=== PATIENT | female | born 1970 | race Caucasian/White ===

== ENCOUNTER 2023-05-13 12:41 | Inpatient (IN) | payer OTHER ==
[2023-05-13 14:14] LABS: HEMATOCRIT 35.6 % (32.4-45.2); MCH 31.5 pg (25.7-33.7); MCHC 33.6 g/dl (32.0-36.0); MEAN PLT VOLUME 7.4 fl (7.5-11.1); PLATELET COUNT 273.4 10^3/uL (134-434); RBC 3.79 10^6/uL (3.60-5.2); RDW 14.6 % (11.6-15.6); WHITE BLOOD COUNT 8.2 10^3/uL (4.0-10.8)
[2023-05-13 14:17] LABS: INR 1.1 (0.83-1.09); PROTHROMBIN TIME (PATIENT) 12.7 SEC (9.7-13.0)
[2023-05-13 14:19] LABS: PLATELET ESTIMATE ADEQUATE
[2023-05-13 14:23] LABS: BILIRUBIN,TOTAL 0.4 mg/dl (0.2-1); CALCIUM 9.1 mg/dl (8.5-10.1); CREATININE 0.6 mg/dl (0.6-1.3); SGOT/AST 17.8 U/L (15-37); SGPT/ALT 21.6 U/L (7-52)
[2023-05-13 18:01] VITALS: BMI 33.3
[2023-05-14] MEDS ORDERED: ACETAMINOPHEN 1000 MG/100 ML BAG IVPB ONE ×2 (10:00→13:59)
[2023-05-14] MEDS ORDERED: BUPIVACAINE HCL/PF 0.5% (5MG/ML) 10 ML VIAL ONE ×3 (12:23→12:37)
[2023-05-14] MEDS ORDERED: BUPIVACAINE LIPOSOME/PF (EXPAREL) 266 MG/20 ML VIAL ONE (12:23)
[2023-05-14] MEDS ORDERED: DEXMEDETOMIDINE HCL 200 MCG/2 ML IVPB ONE (12:23)
[2023-05-14] MEDS ORDERED: MIDAZOLAM HCL 2 MG/2 ML SINGLE DOSE VIAL ONE (12:23)
[2023-05-14] MEDS ORDERED: FENTANYL CITRATE/PF 50 MCG/ML VIAL ONE (12:24)
[2023-05-14] MEDS ORDERED: BUPIVACAINE HCL/PF 2.5 MG/ML - 30 ML VIAL IJ ONE (12:36)
[2023-05-14] MEDS ORDERED: PROPOFOL 20 ML ONE ×2 (13:12→14:47)
[2023-05-14] MEDS ORDERED: ONDANSETRON 4 MG/2 ML VIAL IVPUSH PRN (13:59)
[2023-05-14] MEDS: ACETAMINOPHEN 1000 MG/100 ML BAG IVPB PRN ×2 (15:36→21:01)
[2023-05-14] MEDS ORDERED: ONDANSETRON 4 MG/2 ML VIAL ONE (15:40)
[2023-05-14] MEDS ORDERED: ACETAMINOPHEN INJECTION 100 ML IVPB ONE (15:42)
[2023-05-14] MEDS: DEXTROSE 5%-NORMAL SALINE 1,000 ML IV SCH (17:31)
[2023-05-14] MEDS: LACTATED RINGERS SOLUTION 1,000 ML IV SCH (17:51)
[2023-05-15] MEDS: ANASTROZOLE 1 MG TABLET PO SCH ×2 (05:39→09:31)
[2023-05-15] MEDS: LEVOTHYROXINE NA 100 MCG TABLET (FP) PO SCH ×2 (05:39→06:20)
[2023-05-15 08:52] LABS: HEMOGLOBIN 11.7 G/dL (10.7-15.3); MCH 31.6 pg (25.7-33.7); MCHC 33.3 g/dl (32.0-36.0); MEAN CELL VOLUME 94.8 fl (80-96); MEAN PLT VOLUME 7.9 fl (7.5-11.1); PLATELET COUNT 299.6 10^3/uL (134-434); RBC 3.69 10^6/uL (3.60-5.2); RDW 15.1 % (11.6-15.6)
[2023-05-15 09:02] LABS: ALBUMIN 3.8 g/dl (3.4-5.0); BILIRUBIN,TOTAL 0.2 mg/dl (0.2-1); BLOOD UREA NITROGEN 14.3 mg/dl (7-18); CREATININE 0.6 mg/dl (0.6-1.3); POTASSIUM 4.1 mmol/L (3.5-5.1); SGOT/AST 18.2 U/L (15-37); TOT PROT 5.7 g/dl (6.4-8.2)
[2023-05-15] MEDS: oxyCODONE HCL 5 MG TABLET PO PRN ×3 (09:18→17:58)
[2023-05-15] MEDS: DEXTROSE 5%-NORMAL SALINE 1,000 ML IV SCH (17:46)
[2023-05-15] MEDS: LACTATED RINGERS SOLUTION 1,000 ML IV SCH (17:47)
[2023-05-15 22:34] VITALS: RESP 18
[2023-05-16] MEDS: LEVOTHYROXINE NA 100 MCG TABLET (FP) PO SCH (06:22)
[2023-05-16] MEDS: oxyCODONE HCL 5 MG TABLET PO PRN ×2 (06:24→12:48)
[2023-05-16] MEDS ORDERED: REFRIGERATED ANITBIOTICS ONE (11:33)
[2023-05-16] MEDS: ANASTROZOLE 1 MG TABLET PO SCH (12:16)
[2023-05-16 14:08] VITALS: BP 110/60; PULSE 70; TEMP 98.1
== END 2023-05-16 12:30 | disposition home or self-care (01) | DRG 313 ==
LOC: FER 12:41 → FM/S 15:12
PROC: 0SSG04Z Reposition Left Ankle Joint with Internal Fixation Device, Open Approach (ICD-10-PCS; principal; 2023-05-14 14:04)
DX: S82.892A Other fracture of left lower leg, initial encounter for closed fracture (principal); E03.9 Hypothyroidism, unspecified; W19.XXXA Unspecified fall, initial encounter; Y93.9 Activity, unspecified; Y92.89 Other specified places as the place of occurrence of the external cause; Y99.9 Unspecified external cause status
CPT/HCPCS: 36415; 71045-TC-FY; 73610-TC-LT-FY; 73630-TC-LT; 80053; 85025; 85027; 85610; 86850; 86900; 86901; 87635; 93005; 93306-TC; 94760; 97116-GP; 97161-GP; 99285-25; C1713